=== PATIENT | female | born 1955 | race Caucasian/White ===

== ENCOUNTER 2021-07-21 08:39 | Day surgery (SDC) | payer MEDICARE, OTHER ==
--- NOTE | 2021-07-21 07:49 | HP ---
DATE OF SURGERY: 07/21/2021 HISTORY OF PRESENT ILLNESS: The patient is a 65-year-old with history of a CT showing abnormal esophagus, according to the patient. No current hematemesis. Family history of cancer but not stomach cancer. Original CT scan was done for kidney infection in the past. She had some herniation of abdominal fat along with distal esophagus mild prominent lymph node incidental. PAST MEDICAL HISTORY: Stroke in April 2020. Depression. Lupus. Rheumatoid arthritis. Anxiety. Reflux. Hypertension. Hyperlipidemia. PAST SURGICAL HISTORY: Knee replacement. Cholecystectomy. Partial hysterectomy. Foot surgery. MEDICATIONS: Includes omeprazole, clonazepam, lisinopril, carvedilol, atorvastatin, hydrochlorothiazide, aspirin, duloxetine. ALLERGIES: CELEBREX. LATEX. FAMILY HISTORY: Negative in regards to this problem. SOCIAL HISTORY: No smoking or alcohol abuse. REVIEW OF SYSTEMS: Fourteen systems reviewed per admission assessment. PHYSICAL EXAMINATION: GENERAL: No acute distress. HEENT: Sclerae nonicteric. Mucous membranes moist. NECK: No JVD. CHEST: Equal excursion, nonlabored breathing. CVS: Regular rate and rhythm. ABDOMEN: Soft. No peritoneal signs. EXTREMITIES: No significant edema. NEURO: Alert, oriented, moving extremities symmetrically. PSYCH: Appropriate mood and affect. SKIN: Dry. IMPRESSION: Past CT scan showed a little bit of herniation of fat alongside the esophagus and there is a slightly prominent lymph node in the area. The patient is in need of upper endoscopy possible biopsy as an outpatient. General risk of bleeding or infection, risk of bowel injury or perforation possibly requiring open procedure, risk of missed or nondiagnosis or incomplete exam possibly requiring barium swallow, other studies or procedures. General risk of anesthesia or sedation, risk of missed or nondiagnosis but not limited to. Will proceed with EGD possible biopsy as an outpatient.
[~2021-07-21 08:39] MED LIST: Lactated Ringers 1,000 ML IV SCH
[2021-07-21] MEDS ORDERED: Lactated Ringers 1,000 ML IV SCH (09:00)
[2021-07-21] MEDS ORDERED: Lactated Ringers 1,000 ML IV ONE (09:34)
[2021-07-21] MEDS ORDERED: DIPRIVAN 200 MG/20 ML IV ONE (10:57)
[2021-07-21] MEDS ORDERED: Xylocaine-Mpf 2% 5 Ml Vial ONE (10:57)
[2021-07-21] MEDS ORDERED: Versed 2 MG/2 ML Injection ONE (10:58)
[2021-07-21 12:06] VITALS: PULSE 71; O2SAT 96
[2021-07-21 12:11] VITALS: BP 137/79
--- NOTE | 2021-07-22 09:38 | OP ---
SURGERY DATE/TIME: 07/21/2021 1059 PREOPERATIVE DIAGNOSIS: History of some reflux, some nausea and emesis up in hiatal area, small adjacent lymph node on CT scan recently, need for upper endoscopy for evaluation. POSTOPERATIVE DIAGNOSIS: Mild gastritis, plus/minus early distal esophagitis. No evidence of any mass. No evidence of any deep erosions, path pending. PROCEDURES: 1) EGD with cold biopsy of small bowel to evaluate for celiac sprue. 2) Cold biopsy antrum to evaluate for Helicobacter pylori. 3) Cold biopsy distal esophagus. SURGEON: Dr. Lester Garibay. ANESTHESIA: MAC. ESTIMATED BLOOD LOSS: Minimal. INDICATIONS: As noted above. Risks and benefits explained in detail and not limited to and consent obtained. DESCRIPTION OF PROCEDURE AND FINDINGS: The patient is taken to the endoscopy room. MAC anesthesia introduced. After official time out and no disagreement with planned procedure, a bite block positioned. Video gastroscope easily passed down through the esophagus down to the third portion of the duodenum. Third, second, first portion of duodenum grossly unremarkable. No signs of any obvious masses. Given her symptom complaints, cold biopsy taken to evaluate for celiac sprue. Good hemostasis noted. Scope pulled back into the antrum. She had some gastritis. No signs of any masses or other mucosal lesions. There is no sign of any large hiatal hernia. Cold biopsy taken in the antrum to evaluate for Helicobacter pylori. Scope pulled back gastroesophageal junction 40 cm. There is just a slight variation of gastroesophageal junction whether this is normal variation or early distal esophagitis. There is a little of erythema versus early Mccarthy's. Cold biopsies taken of the area for further evaluation. There were no gross evidence of any obvious mass. There was no endoscopically visible evidence of any large hiatal hernia. The remainder of the esophagus was unremarkable. No signs of any obvious masses or mucosal lesions. The scope is withdrawn. The patient tolerated the procedure well. There were no immediate complications. Findings discussed with the family later when they showed up in the waiting area.
== END 2021-07-21 12:25 | disposition home or self-care (01) ==
LOC: SDC 08:39
PROVIDERS: ATTEND Surgery
DX: K29.70 Gastritis, unspecified, without bleeding (principal); Z87.19 Personal history of other diseases of the digestive system; R11.2 Nausea with vomiting, unspecified; R59.0 Localized enlarged lymph nodes; K20.90 Esophagitis, unspecified without bleeding; Z80.9 Family history of malignant neoplasm, unspecified
CPT/HCPCS: J2250; J2704